=== PATIENT | female | born 1940 | race Caucasian/White ===

== ENCOUNTER 2018-09-23 16:35 | Emergency (ER) | payer MEDICARE, OTHER ==
[~2018-09-23] VITALS: Ht 160 cm; Wt 48.1 kg
[2018-09-23 16:53] LABS: URINE BLOOD TRACE (Negative); URINE COLOR YELLOW; URINE GLUCOSE-RANDOM NEGATIVE (Negative); URINE KETONES 1+ (Negative); URINE LEUKOCYTES-REFLEX TRACE (Negative); URINE NITRITE-REFLEX NEGATIVE (Negative); URINE PROTEIN TRACE (Negative); URINE SPECIFIC GRAVITY >= 1.030 (1.005-1.030); URINE UROBILINOGEN 0.2 E.U./dl (0.2-1.0)
[2018-09-23 16:54] LABS: ICTOTEST (BILI CONFIRMATORY) Negative (Negative); URINE BILIRUBIN 1+ (Negative); URINE CLARITY HAZY
[2018-09-23] MEDS ORDERED: BACTRIM DS TAB1 EACH PO (17:01)
[2018-09-23] MEDS ORDERED: COUMADIN7.5 MG PO (17:02)
[2018-09-23] MEDS ORDERED: COUMADIN 5 MG TA5 M1 PO (17:02)
[2018-09-23] MEDS ORDERED: AZITHROMYCIN 2250 MG PO (17:02)
[2018-09-23] MEDS ORDERED: VESICARE10 M1 PO (17:02)
[2018-09-23] MEDS ORDERED: TOPROL XL50 MG PO (17:03)
[2018-09-23] MEDS ORDERED: ALDACTONE50 MG PO (17:03)
[2018-09-23 17:05] LABS: SQUAMOUS 0-3 Few /LPF (0-3); URINE RBC None Seen /HPF (0-2); URINE WBC-REFLEX >25 Many /HPF (0-5); WBC CLUMPS Few (None Seen)
[2018-09-23 17:06] LABS: CASTS None Seen /LPF (None Seen); CRYSTALS None Seen /LPF (None Seen); MUCUS 4-6 Moderate strn/LPF (None Seen)
[2018-09-23 17:14] LABS: ABSOLUTE BASOPHILS 0.1 thou/uL (0.0-0.2); ABSOLUTE LYMPHOCYTES 0.8 thou/uL (0.8-5.3); ABSOLUTE MONOCYTES 0.6 thou/uL (0.0-1.2); ABSOLUTE NEUTROPHILS 4.8 thou/uL (1.6-8.1); EOSINOPHILS 0.1 %; HEMATOCRIT 37.7 % (37.0-47.0); HEMOGLOBIN 12.5 gm/dL (12.0-15.0); LYMPHOCYTES 12.9 %; MCH 31.7 pg (26.0-34.0); MCHC 33.3 g/dL (28.0-37.0); MCV 95.3 fL (80.0-100.0); MPV 7.8 fl. (7.2-11.1); NUCLEATED RBCS 0 /100WBC; PLATELET COUNT* 194 thou/uL (150-400); RBC 3.95 mil/uL (4.20-5.00); RDW-CV 14.5 % (10.5-14.5); WBC 6.3 thou/uL (4.0-11.0)
[2018-09-23 17:23] LABS: INR 2.6; PROTIME 26.1 Seconds (9.20-11.50)
[2018-09-23 17:24] LABS: CALCIUM 9.2 mg/dL (8.5-10.1); POTASSIUM 4.4 mmol/L (3.5-5.1)
[2018-09-23 17:31] LABS: ALBUMIN 3.5 g/dL (3.4-5.0); TOTAL BILIRUBIN 1.5 mg/dL (<0.1-1.0); TOTAL PROTEIN 7.5 g/dL (6.4-8.2)
[2018-09-23] MEDS ORDERED: AUGMENTIN 875-1 EACH PO (17:50)
[2018-09-23 19:13] VITALS: BP 99/44
--- NOTE | 2018-09-24 12:16 | EKG ---
[place] [address] ELECTROCARDIOGRAM REPORT Name: CRISSY COHN Room: [facility]#: [id number] Admission: 09/23/18 Attend Phys: Discharge: 09/23/18 Date of : 40 Report #: [id number] THIS REPORT FOR: //name// [facility] ED Test Date: 2018-09-23 Test Time: 17:01:35 Pat Name: CRISSY COHN Department: Room: Gender: F [employer]: : 1940 Requested By: Janelle Ramsey Order Number: [id number] MD: Darwin Rangel Measurements Intervals [place] Rate: 63 P: 146 NM: 158 QRS: -84 QRSD: 147 T: 110 QT: 419 QTc: 429 Interpretive Statements Ventricular-paced rhythm No further analysis attempted due to paced rhythm Baseline wander in lead(s) V5 No previous ECG available for comparison Electronically Signed On 09-24-2018 12:16:11 MALTER OPERATOR by Darwin Rangel [email or web address] <ELECTRONICALLY SIGNED> By: Darwin Rangel MD, [facility] 09/24/18 1216 00 00 Darwin Rangel MD, [facility] /EPI
== END 2018-09-23 19:13 | disposition home or self-care (01) ==
LOC: M.ERS 16:35
PROVIDERS: Nurse Practitioner Family
DX: N39.0 Urinary tract infection, site not specified (principal); R11.2 Nausea with vomiting, unspecified; Z91.041 Radiographic dye allergy status